=== PATIENT | female | born 1975 | race African-American/Black ===

== ENCOUNTER 2019-12-11 08:27 | Emergency (ER) | payer OTHER ==
[~2019-12-11] VITALS: Ht 167.6 cm; Wt 87.2 kg
[2019-12-11 08:36] VITALS: BP 150/78
--- NOTE | 2019-12-11 09:50 | NUR ---
PT PRESENTS TO ED WITH C/O COUGH SINCE OCTOBER 2019, DENIES RECENT TRAVEL, DENIES CP, DENIES SOB. PT STATES INTERMITTENTLY SHE HAS HAD BLOOD TINGED SPUTUM WITH PRODUCTIVE COUGH. PT A&O, RESPS EVEN AND UNLABORED, NADN. MASK IN PLACE. 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
[2019-12-11 09:57] LABS: BASOPHILS # (AUTO) 0.02 x10^3/uL (0-0.1); BASOPHILS % (AUTO) 0 % (0-1); EOSINOPHILS # (AUTO) 0.08 x10^3/uL (0-0.4); EOSINOPHILS % (AUTO) 1 % (1-7); LYMPHOCYTES # (AUTO) 1.66 x10^3/uL (1-3.4); LYMPHOCYTES % (AUTO) 27 % (22-44); MD NO; MEAN CORPUSCULAR HEMOGLOBIN 27.2 pg (27.0-34.8); MEAN CORPUSCULAR HGB CONC 32.4 g/dL (32.4-35.8); MEAN CORPUSCULAR VOLUME 83.8 fL (80-100); MEAN PLATELET VOLUME 7.3 fL (7.4-10.4); MONOCYTES # (AUTO) 0.47 x10^3/uL (0.2-0.8); MONOCYTES % (AUTO) 8 % (2-9); NEUTROPHILS # (AUTO) 4.01 x10^3/uL (1.8-6.8); NEUTROPHILS % (AUTO) 64 % (42-75); PLATELET COUNT 533 x10^3/uL (130-400); RED BLOOD COUNT 3.97 x10^6/uL (3.82-5.3); RED CELL DISTRIBUTION WIDTH 17.2 % (9.6-15.2)
[2019-12-11] MEDS ORDERED: ALBUTEROL/IPRATROPIUM 2.5MG/0.5MG, 3 ML NPPB ONE (10:00)
[2019-12-11 10:02] LABS: CHLORIDE 110 mmol/L (98-107)
[2019-12-11] MEDS ORDERED: ALBUTEROL/IPRATROPIUM 2.5MG/0.5MG, 3 ML ONE (10:03)
[2019-12-11 10:26] LABS: ALBUMIN 3.4 g/dL (3.4-5.0); ANION GAP 7 mmol/L (5-15); CALCIUM 8.4 mg/dL (8.5-10.1); CREATININE 0.84 mg/dL (0.55-1.02)
[2019-12-11] MEDS ORDERED: DEXAMETHASONE 4 MG TABLET PO ONE (11:30)
[2019-12-11] MEDS ORDERED: DEXAMETHASONE 4 MG TABLET ONE (11:31)
== END 2019-12-11 11:47 | disposition home or self-care (01) ==
LOC: ED 10:01
DX: J98.01 Acute bronchospasm (principal); B34.9 Viral infection, unspecified
CPT/HCPCS: 36415; 71046; 80048; 82040; 85025; 85379; 94640; 99284; J7620